=== PATIENT | female | born 1990 | race Asian ===

== ENCOUNTER 2020-04-20 16:47 | Emergency (ER) | payer OTHER ==
[~2020-04-20] VITALS: Ht 157.5 cm; Wt 59.0 kg
[2020-04-20 16:57] VITALS: Ht 157.5 cm; Wt 59.0 kg
[2020-04-20 17:53] LABS: microscopic required? NO
[2020-04-20 18:21] LABS: UA SPECIFIC GRAVITY <=1.005 (1.005-1.035); urine erythrocyte NEGATIVE (NEGATIVE)
[2020-04-20 20:18] VITALS: BP 119/77
== END 2020-04-20 20:05 | disposition home or self-care (01) ==
LOC: ED 16:47
PROVIDERS: Student in an Organized Health Care Education/Training Program
DX: O26.892 Other specified pregnancy related conditions, second trimester (principal); N89.8 Other specified noninflammatory disorders of vagina; Z3A.22 22 weeks gestation of pregnancy
CPT/HCPCS: 87491; 87591; Q0092